=== PATIENT | male | born 1990 | race Caucasian/White ===

== ENCOUNTER 2023-05-27 12:36 | Emergency (ER) | payer OTHER, SELFPAY ==
--- NOTE | 2023-05-27 12:30 | DI.RAD_ITS ---
Exam(s) XR PORTABLE CHEST AP EXAM: XR PORTABLE CHEST AP CLINICAL HISTORY: Trauma TECHNIQUE: 2D digital imaging was performed of the chest. Two images were obtained. AP views were obtained. COMPARISON: No exams were available for comparison FINDINGS: MEDIASTINUM: Normal. HEART: Normal. PULMONARY VASCULATURE: Normal. LUNGS: Clear. PLEURAL SPACE: No pleural effusion or pneumothorax. BONE:Within normal limits for the patient's age. There are no displaced rib fractures. OTHER FINDINGS:Normal. IMPRESSION: No acute pulmonary findings. DATA REPOSITORY: RADIATION DOSE DELIVERED:
[2023-05-27 12:37] VITALS: BP 144/75; PULSE 58; RESP 18; TEMP 36.4; O2SAT 100
[2023-05-27 12:40] VITALS: BP 144/75; PULSE 55; O2SAT 100
[2023-05-27 12:46] VITALS: BP 137/53; PULSE 51
[2023-05-27] MEDS: fentaNYL 100 MCG/2 ML VIAL 50 MCG IVP (12:47)
[2023-05-27 12:51] LABS: Abs Immature Grans 0.02 10^3/uL (0.0-0.06); Absolute Basophil Count 0.02 10^3/uL (0.0-0.2); Absolute Eosinophil Count 0.05 10^3/uL (0.0-0.7); Absolute Lymphocyte Count 1.62 10^3/uL (1.2-3.4); Absolute Monocyte Count 0.51 10^3/uL (0.1-0.8); Absolute Neutrophil Count 5.96 10^3/uL (1.2-6.7); Basophils % 0.2; Eosinophils % 0.6; HCT 43.5 % (40.0-50.0); HGB 14.6 g/dL (13.5-17.5); Immature Grans % 0.2; Lymphocytes % 19.8; MCH 29.7 pg (27.0-33.0); MCHC 33.6 % (32.0-36.0); MCV 88 fL (80-95); MPV 9.8 fL (8.0-11.0); Monocytes % 6.2; Platelet Count 188 10^3/uL (130-400); RBC 4.92 10^6/uL (4.36-5.78); RDW 13.8 % (11.8-14.1); RDW-SD 44.6 fL; WBC 8.18 10^3/uL (4.4-10.8)
--- NOTE | 2023-05-27 12:51 | ED.GENADUL_ITS ---
HPI General Date/Time Provider Initiated Documentation: 05/27/23 12:40 . HPI Narrative: MDM Primary survey intact. Reassuring shock index. Secondary survey patient has signs of minor trauma to his face. Given his loss of consciousness and significant mechanism of injury will complete CT maxillofacial and CT head. Also will obtain a chest x-ray. No pain or proportion to suggest necrotizing soft tissue infection. Bilateral upper and lower extremities nontender. No signs of trauma to the chest or abdomen however will obtain chest x-ray. Will update patient's tetanus status. No afferent pupillary defect to suggest retrobulbar hematoma. Similarly no proptosis so I do not feel that the patient requires a lateral canthotomy. Finally he denies any changes in his vision. Given no direct trauma to the eye I did not complete fluorescein exam nor slit- lamp exam as my suspicion is exceedingly low for globe rupture and corneal abrasion respectively. Lacerations were cleaned in the emergency department. 2 PM Reassuring negative troponin. Negative ethanol. Basic metabolic panel with v manpreet mild hyperglycemia but no anion gap and normal bicarbonate??not consistent with DKA. CBC lacks anemia thrombocytopenia and leukocytosis. Chest x-ray read as clear. CT head with maxillofacial cuts showing no acute intracranial process. No facial fractures. 2:31 PM Patient ambulated in the ED and was able to tolerate p.o. Will provide him a work note for tomorrow. I asked him to ensure that the iqra that he was using is taken out of service. He reported that he will dispose of it. Chronic conditions affecting the care of the patient: N/A History obtained from an outside historian: Paramedics External record review: N/A [Diagnostic interpretations performed by me: Per my independent interpretation chest x-ray shows: No acute cardiopulmonary process Medications: Acetaminophen ibuprofen Social determinants of health affecting disposition: N/A Management discussed with: Dr. Hill radiology given enlarged cisterna magna which is reportedly meeting characteristics for normal variant. Treatment/interventions considered: N/A Response to therapies provided: Improved symptoms in the ED HPI This is a previously healthy 32-year-old male arrived to the emergency department via ambulance following an injury he sustained at work in which a transmission hit the patient in the face. 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 He was found on the ground by his coworkers. He was reportedly unresponsive for approximately 5 minutes. He sustained a laceration just below his left eye. He has not had any visual changes. He does not feel that he has anything in his eye. He was able to stand after his injury. He denies any difficulty breathing. He takes no routine medications. He received his immunizations during childhood. Exam General: Well-appearing in no acute distress speaking in complete sentences. Head: Normocephalic, atraumatic. Eye:[Pupils equal, round reactive to light.] Extraocular eye movements intact. No conjunctival injection. No scleral icterus. No proptosis. Ear, nose, mouth, throat: Just inferior to the patient's left eye there are 2 superficial approximately 1 cm lacerations. On the left side of the patient's nose there is a superficial 1 cm laceration. All 3 of these lacerations are hemostatic. Neck: Trachea midline. No midline cervical spinal tenderness. Cardiovascular: Well-perfused distal extremities. Regular rate and rhythm. Respiratory: Nonlabored respiration. Clear lungs bilaterally. Gastrointestinal: Nondistended abdomen. Soft nontender Musculoskeletal: No edema. Moving all 4 extremities spontaneously. Skin: Normal for age and race, grossly normal temperature and turgor. No acute rash. Neurologic: Alert and appropriate, no apparent acute deficits. Psychiatric: Mood and manner are appropriate. Grooming and personal hygiene are appropriate. Related Data Allergies Allergy/AdvReac Type Severity Reaction Status Date / Time No Known Allergies Allergy Unverified 05/27/23 12:43 General Stated Complaint: Trauma HERMILO: 2 Course Vital Signs Vital signs: Vital Signs Temperature 36.4 C 05/27/23 12:37 Pulse 58 L 05/27/23 12:37 Respiratory Rate 18 05/27/23 12:37 Blood Pressure 144/75 H 05/27/23 12:37 Pulse Oximetry 100 05/27/23 12:37 Temperature 36.4 C 05/27/23 12:37 Pulse 58 L 05/27/23 12:37 Respiratory Rate 18 05/27/23 12:37 Blood Pressure 144/75 H 05/27/23 12:37 Pulse Oximetry 100 05/27/23 12:37 Medical Decision Making Quality:SDOH Health Related Social Needs: No Data to Display PFSH All Active Problems (Updated 05/27/23 @ 14:16 by Ta Pimentel MD) Face lacerations (Acute) Immunization, tetanus-diphtheria (Acute) Social History Smoking/Tobacco Use Status: Never Smoking risk assessment performed?: Yes Alcohol Intake: current Alcohol Intake frequency: holidays/special occasions only Substance use type: does not use Discharge Plan Disposition Patient Disposition: Home Discharge Details Clinical Impression: Immunization, tetanus-diphtheria, Face lacerations Primary Care Provider: Unknown,Unknown ED Provider: Ta Pimentel Discharge Instructions Instructions: Facial Laceration (ED) Additional Instructions: You were seen in the emergency department for your facial lacerations. CAT scan showed no sign of any bleeding in your head. Your blood work shows that your kidneys are working well. Please return to the emergency department if you develop any streaking signs of infection fevers chills or any foul-smelling drainage from your wound. Otherwise please follow-up with your primary care provider as needed later this week. Your tetanus was updated in the emergency department. Stand Alone Forms: Work Release Discharge Data Discharge Date/Time-TO BE ENTERED AT DEPARTURE: 05/27/23 14:43
--- NOTE | 2023-05-27 13:04 | DI.CT_ITS ---
Exam(s) CT HEAD FACIAL WO EXAM: CT HEAD FACIAL WO CLINICAL HISTORY: Loss of consciousness,. TECHNIQUE: Imaging Protocol: Axial computed tomography images with coronal and sagittal reformatted images were created and reviewed COMPARISON: No exams were available for comparison FINDINGS: CT Head: Ventricles and Extra axial spaces: Normal in size and morphology for the patient's age. Hemorrhage: None. Cerebral parenchyma: Normal. Midline shift: None. Brainstem/Cerebellum: Normal. Calvarium: Normal. Visualized Paranasal sinuses/Mastoids: Clear. Soft Tissues: Unremarkable. CT Face: Facial Bones: No definite fracture is noted in facial bones. Sinuses and Mastoids: There is a small mucous retention cyst in the floor of the right maxillary sin us. The remaining visualized paranasal sinuses and mastoid air cells are clear. Globes, extraocular muscles, optic nerves and retrobulbar fat: Normal. Upper aerodigestive tract: Normal. Mandible and bilateral temporomandibular joints: Normal. Soft tissues: Normal. IMPRESSION: 1. No acute intracranial process. 2. No acute facial fracture. RADIATION DOSE DELIVERED: 1,686.77mGy.cm Total DLP DATA REPOSITORY: All CT scans at this facility are submitted to the National Radiology Data Registry (NRDR) Dose Index Registry (DIR) with the [employer] (ACR). RADIATION OPTIMIZATION: All CT scans at this facility use at least one of these dose optimization te chniques: automated exposure control; mA and/or kV adjustment per patient size (includes targeted exa ms where dose is matched to clinical indication); or iterative reconstruction.
[2023-05-27] MEDS: Normal Saline 500 ML IV (13:07)
[2023-05-27 13:11] LABS: Anion Gap 9.3 mmol/L (3-11); BUN 14 mg/dL (7-18); CO2 28.7 mmol/L (21.0-32.0); Calcium 9.1 mg/dL (8.5-10.1); Chloride 103 mmol/L (98-107); Estimated GFR 103.84 (mL/min/1.73m2); Glucose 111 mg/dL (74-106); Potassium 4.5 mmol/L (3.5-5.1); Sodium 141 mmol/L (136-145); Troponin I < 50 ng/L (< or =60)
[2023-05-27 13:12] LABS: ETHANOL BLOOD < 3.0 mg/dL (<10)
[2023-05-27 13:40] VITALS: PULSE 60; RESP 12; O2SAT 100
[2023-05-27 14:10] VITALS: PULSE 52; RESP 17; O2SAT 100
[2023-05-27 14:27] VITALS: BP 133/68; PULSE 48
[2023-05-27] MEDS: Acetaminophen 500 MG TAB 1000 MG PO (14:40)
[2023-05-27] MEDS: Ibuprofen 600 MG TAB PO (14:41)
== END 2023-05-27 14:43 | disposition home or self-care (01) ==
PROVIDERS: Emergency Provider Emergency Medicine
DX: S01.81XA Laceration without foreign body of other part of head, initial encounter (principal); W24.0XXA Contact with lifting devices, not elsewhere classified, initial encounter; Y93.89 Activity, other specified; Y92.89 Other specified places as the place of occurrence of the external cause; Y99.0 Civilian activity done for income or pay; Z23 Encounter for immunization
CPT/HCPCS: 36415; 80048; 90471; 90715; 96361; 96374; 99285; 70450; 70486; 71045; 80320; 84484; 85025; 99284; J3010

== ENCOUNTER 2024-04-06 10:05 | Emergency (ER) | payer BC, SELFPAY ==
[2024-04-06 10:19] VITALS: BP 147/78; PULSE 60; RESP 16; TEMP 36.8; O2SAT 100
--- NOTE | 2024-04-06 10:30 | DI.US_ITS ---
Exam(s) US SCROTUM EXAM: US SCROTUM CLINICAL HISTORY: R test. tenderness, eval for epidid and vasc flow TECHNIQUE: Ultrasound of the testes performed using grayscale, color, and Doppler imaging. COMPARISON: No exams were available for comparison FINDINGS: RIGHT HEMISCROTUM: The right testicle exhibits normal size and echo architecture with no evidence of solid intratesticul ar mass. There are a few small benign-appearing cysts in the right testicle, the largest measuring 4 x 2 mm. Vascular flow was demonstrated within the right testicle, including arterial waveforms. The epididymis appears unremarkable. There are no epididymal head cysts. There is no ipsilateral hydrocele nor varicocele. There is a bowel loop containing right inguinal hernia demonstrated upon Valsalva maneuver. LEFT HEMISCROTUM: The left testicle exhibits normal size and echo architecture with no evidence of intratesticular mass . Vascular flow is demonstrated within the left testicle, including arterial waveforms. The epididymis appears unremarkable. There are no epididymal head cysts. There is no ipsilateral hydrocele or varicocele. IMPRESSION: 1. No evidence of significant testicular mass nor testicular torsion. A few tiny benign cysts are no bettina in the right testicle. 2. Right inguinal hernia noted with Valsalva maneuver. This appears to contain bowel loop. 3. No hydroceles or varicoceles evident. Report called by myself to ER 04/06/2024 at 12:01 noon DATA REPOSITORY:
--- NOTE | 2024-04-06 10:30 | DI.CT_ITS ---
Exam(s) CT ABDOMEN PELVIS W EXAM: CT ABDOMEN PELVIS W CLINICAL HISTORY: right groin pain, hernia now reduced. TECHNIQUE: Imaging Protocol: Axial computed tomography images with coronal and sagittal reformatted images were created and reviewed CONTRAST MATERIAL: Intravenous: Omnipaque-350 100cc Oral: None COMPARISON: No exams were available for comparison FINDINGS: VISUALIZED LUNG BASES: No nodules nor pleural effusions evident. ABDOMEN: There is no ascites. LIVER: There are no focal hepatic lesions evident. No dilated intrahepatic ducts. GALLBLADDER/BILIARY: Septated. No obvious acute gallbladder pathology. CBD is not dilated. PANCREAS: No evidence of pancreatic mass nor dilatation of the pancreatic duct. SPLEEN: Spleen is not enlarged. No obvious intrasplenic lesions. Splenic and portal veins are paten t. ADRENALS: There are no significant adrenal masses. KIDNEYS:No cysts evident. No solid renal masses. No calculi nor hydronephrosis.. ABDOMINAL AORTA: Abdominal aorta is not enlarged. LYMPH NODES:There is no retroperitoneal nor paraaortic adenopathy. ABDOMINAL WALL: Anterior abdominal wall small fat only containing umbilical hernia GI: There is no evidence of bowel obstruction, free air, nor abscess. PELVIS: GI: No evidence of appendicitis.No evidence of sigmoid diverticulitis. LYMPH NODES: There is no intrapelvic nor inguinal adenopathy. REPRODUCTIVE: Age-appropriate URINARY BLADDER: No calculi nor obvious masses evident OSSEOUS: No fractures and no significant osseous lesions. IMPRESSION: 1. No acute findings on the CT scan of the abdomen pelvis. 2. Small fat only containing umbilical hernia. No bowel obstruction. Report called by myself to ER physician 04/06/2024 at 11:48 a.m. RADIATION DOSE DELIVERED: 526.09mGy.cm Total DLP DATA REPOSITORY: All CT scans at this facility are submitted to the National Radiology Data Registry (NRDR) Dose Index Registry (DIR) with the [employer] (ACR). RADIATION OPTIMIZATION: All CT scans at this facility use at least one of these dose optimization te chniques: automated exposure control; mA and/or kV adjustment per patient size (includes targeted exa ms where dose is matched to clinical indication); or iterative reconstruction.
[2024-04-06 10:58] LABS: Lactate 1.2 mmol/L (0.6-1.4)
[2024-04-06] MEDS: Ketorolac 15 MG/ML VIAL IVP (11:00)
[2024-04-06] MEDS: Acetaminophen 500 MG TAB 1000 MG PO (11:00)
[2024-04-06 11:08] LABS: Abs Immature Grans 0.01 10^3/uL (0.0-0.06); Absolute Basophil Count 0.02 10^3/uL (0.0-0.2); Absolute Eosinophil Count 0.03 10^3/uL (0.0-0.7); Absolute Lymphocyte Count 1.68 10^3/uL (1.2-3.4); Absolute Neutrophil Count 3.15 10^3/uL (1.2-6.7); Basophils % 0.4 %; Eosinophils % 0.6 %; HCT 44.4 % (40.0-50.0); Immature Grans % 0.2 %; Lymphocytes % 31.8 %; MCH 29.9 pg (27.0-33.0); MCHC 33.8 % (32.0-36.0); MCV 88 fL (80-95); MPV 10.4 fL (8.0-11.0); Monocytes % 7.6 %; Neutrophils % 59.4 %; Platelet Count 180 10^3/uL (130-400); RBC 5.02 10^6/uL (4.36-5.78); RDW 13.9 % (11.8-14.1); RDW-SD 45.1 fL; WBC 5.29 10^3/uL (4.4-10.8)
[2024-04-06] MEDS: Omnipaque 350 MG/ML 500 ML BTL-Imaging package IJ (11:15)
[2024-04-06] MEDS: Normal Saline - Diluent 50 ML VIAL IJ (11:17)
[2024-04-06 12:00] LABS: Bilirubin Negative (Negative); Blood Negative (Negative); Clarity Clear (Clear); Glucose Negative (Negative); Ketones Negative (Negative); Leukocyte Esterase Negative (Negative); Nitrite Negative (Negative); Specific Gravity 1.015 (1.005-1.025); Urobilinogen 0.2 mg/dL (Up to 0.2)
--- NOTE | 2024-04-06 12:19 | ED.GENADUL_ITS ---
Discharge Plan Disposition Patient Disposition: Home Condition: Good Discharge Details Clinical Impression: Hernia, inguinal, right Primary Care Provider: Unknown,Unknown ED Provider: Justo Britt Home Meds and New Rx's Prescriptions: No Action No Known Home Meds Discharge Instructions Instructions: Groin hernias Additional Instructions: At this time your CAT scan and ultrasound are reassuring. Please take Tylenol and Motrin as needed for pain. Avoid any significant heavy lifting greater than 5 to 10 pounds. We have placed a referral with our surgeons, they will contact you for follow-up. If you notice any worsening of your symptoms, or any new symptoms such as vomiting, diarrhea, fever, chills, shortness of breath, chest pain, numbness, weakness, or fainting , please return immediately to the emergency department for reevaluation. Please follow up with your primary care provider as soon as possible for reassessment and reevaluation. As always, it was a pleasure participating in your medical care today. Referrals: Carl Hill MD [ [facility] STAFF PHYSICIAN] - Shaina Cruz DO [OSTEOPATHIC DOCTOR] - Discharge Data Discharge Date/Time-TO BE ENTERED AT DEPARTURE: 04/06/24 12:28 HPI General Date/Time Provider Initiated Documentation: 04/06/24 10:06 . HPI Narrative: 33-year-old male with a past medical history of a right inguinal hernia presents today for evaluation of right inguinal pain. Patient states that for the last few years he has been having a right inguinal hernia that will pop in and out whenever he does lifting. Normally it does not cause him significant discomfort, however over the last few days he has had mild right lower quadrant abdominal pain and tenderness in the area of the hernia. He denies any fever or chills. He does have some nausea but no vomiting. Last bowel movement was today, and it was soft in nature. He denies any dysuria, hematuria. He did have intercourse yesterday which was unremarkable. He denies any significant acute testicular pain. He denies any blood in his stools. No other complaints at this time. Related Data Home Medications ?Medication ?Instructions ?Recorded ?Confirmed Unknown [No Known Home Meds] 06/05/23 04/06/24 Allergies Allergy/AdvReac Type Severity Reaction Status Date / Time No Known Allergies Allergy Unverified 04/06/24 10:21 General Stated Complaint: Abd Prob HERMILO: 3 Exam Narrative Exam Narrative: 1.Const: Well-nourished, Well-developed, appearing stated age 2.Eyes: PERRL, no conjunctival injection, and symmetrical lids. 3.ENT: Atraumatic external nose and ears. Moist MM. Neck: Symmetric, trachea midline, No thyromegaly. 4.CVS: +S1/S2, Peripheral pulses 2+ and equal in all extremities. Brisk capillary refill in all extremities. 5.RESP: Unlabored respiratory effort. Clear to auscultation bilaterally. No wheezes rales or rhonchi 6.GI: Soft, Nontender/Nondistended, No hepatosplenomegaly. No guarding or rebound. When the patient does lay down there is no evidence of active hernia. When he does sit up and Valsalva small right inguinal hernia does present. He does have a single right sided inguinal lymph node that is palpable. Testicles demonstrate minimal tenderness on palpation of the epididymis bilaterally. Normal cremasteric reflex bilaterally. No urethral discharge. No penile pain. No scrotal hernia. Small umbilical hernia is palpable. 7.MSK: Normocephalic/Atraumatic, Extremities w/o deformity or ttp No cyanosis or clubbing, Normal movement of all extremities 8.Skin: Warm, Dry. No rashes or lesions. 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 Sensation grossly intact, no focal neurologic deficits. 10.Psych: (AAO) x3. Appropriate mood and affect Course Vital Signs Vital signs: Vital Signs Temperature 36.8 C 04/06/24 10:19 Pulse 60 04/06/24 10:19 Respiratory Rate 16 04/06/24 10:19 Blood Pressure 147/78 H 04/06/24 10:19 Pulse Oximetry 100 04/06/24 10:19 Temperature 36.8 C 04/06/24 10:19 Pulse 60 04/06/24 10:19 Respiratory Rate 16 04/06/24 10:19 Blood Pressure 147/78 H 04/06/24 10:19 Pulse Oximetry 100 04/06/24 10:19 Pain Level 7 04/06/24 10:19 Lab/Test Results Lab/Test Results: Laboratory Tests Range/Units 04/06/24 04/06/24 10:50 11:50 WBC (4.4-10.8) 10^3/uL 5.29 RBC (4.36-5.78) 10^6/uL 5.02 Hgb (13.5-17.5) g/dL 15.0 Hct (40.0-50.0) % 44.4 MCV (80-95) fL 88 MCH (27.0-33.0) pg 29.9 MCHC (32.0-36.0) % 33.8 RDW (11.8-14.1) % 13.9 Plt Count (130-400) 10^3/uL 180 MPV (8.0-11.0) fL 10.4 Immature Gran % % 0.2 Neutrophils % % 59.4 Lymphocytes % % 31.8 Monocytes % % 7.6 Eosinophils % % 0.6 Basophils % % 0.4 Nucleated RBC % (0.0-0.3) % 0.0 Absolute Neutrophils (1.2-6.7) 10^3/uL 3.15 Absolute Lymphocytes (1.2-3.4) 10^3/uL 1.68 Absolute Monocytes (0.1-0.8) 10^3/uL 0.40 Absolute Eosinophils (0.0-0.7) 10^3/uL 0.03 Absolute Basophils (0.0-0.2) 10^3/uL 0.02 VBG Lactate (0.6-1.4) mmol/L 1.2 Urine Color (Yellow) Yellow Urine Clarity (Clear) Clear Urine pH (5-8) 7.0 Ur Specific [place] (1.005-1.025) 1.015 Urine Protein (Neg-Trace) mg/dL Negative Urine Ketones (Negative) mg/dL Negative Urine Blood (Negative) Negative Urine Nitrite (Negative) Negative Urine Bilirubin (Negative) Negative Urine Urobilinogen (Up to 0.2) mg/dL 0.2 Ur Leukocyte Esterase (Negative) Negative Urine Glucose (Negative) mg/dL Negative Medical Decision Making 33-year-old male with a past medical history of a right inguinal hernia presents today for evaluation of right inguinal pain. Patient states that for the last few years he has been having a right inguinal hernia that will pop in and out whenever he does lifting. Normally it does not cause him significant discomfort, however over the last few days he has had mild right lower quadrant abdominal pain and tenderness in the area of the hernia. He raisa es any fever or chills. He does have some nausea but no vomiting. Last bowel movement was today, and it was soft in nature. He denies any dysuria, hematuria. He did have intercourse yesterday which was unremarkable. He denies any significant acute testicular pain. He denies any blood in his stools. No other complaints at this time. Physical exam demonstrates an abdomen that is soft, Nontender/Nondistended, No hepatosplenomegaly. No guarding or rebound. When the patient does lay down there is no evidence of active hernia. When he does sit up and Valsalva small right inguinal hernia does present. Palpation of the right inguinal area does demonstrate some mild tenderness. He does have a single right sided inguinal lymph node that is palpable. Testicles demonstrate minimal tenderness on palpation of the epididymis bilaterally. Normal cremasteric reflex bilaterally. No urethral discharge. No penile pain. No scrotal hernia. Small umbilical hernia is palpable. With the mild achiness in the right inguinal area differential includes lymphadenitis causing the pain tenderness, potential strangulated hernia which is since resolved, less likely appendicitis. With his very mild epididymal tenderness we will get ultrasound to rule out epididymitis. Clinically this appears less likely, but I do feel further evaluation is indicated. Will monitor closely and reassess. 4:24 PM Ultrasound has returned, there are a few benign cyst noted in the right testicle but no other abnormalities. No masses to suggest cancer. Right inguinal hernia is present with Valsalva, and this contains a small bowel loop, but no incarceration or strangulation. CT imaging shows no evidence of acute process. Patient otherwise continues to feel well. Repeat exam continues to show no sign s of a strangulated or incarcerated hernia, no evidence of an acute surgical abdomen. Patient feels well. He will be discharged home. Patient will be given referral for outpatient surgical follow-up. Discussed red flags for which to return. Recommend continued stool softeners. I have extensively reviewed the treatment plan and discharge instructions with the patient. I have addressed all patient concerns at this time. The patient was made aware of what symptoms to monitor for that would warrant a return to the emergency department. Discussed the plan with the patient, they demonstrate verbal understanding and agreement with our assessment and plan at this time. The documentation in this chart was dictated using [employer] dictation software. Please excuse any dictation errors. FINDINGS: RIGHT HEMISCROTUM: The right testicle exhibits normal size and echo architecture with no evidence of solid intratesticular mass. There are a few small benign-appearing cysts in the right testicle, the largest measuring 4 x 2 mm. Vascular flow was demonstrated within the right testicle, including arterial waveforms. The epididymis appears unremarkable. There are no epididymal head cysts. There is no ipsilateral hydrocele nor varicocele. There is a bowel loop containing right inguinal hernia demonstrated upon Valsalva maneuver. LEFT HEMISCROTUM: The left testicle exhibits normal size and echo architecture with no evidence of intratesticular mass. Vascular flow is demonstrated within the left testicle, including arterial waveforms. The epididymis appears unremarkable. There are no epididymal head cysts. There is no ipsilateral hydrocele or varicocele. IMPRESSION: 1. No evidence of significant testicular mass nor testicular torsion. A few tiny benign cysts are noted in the right testicle. 2. Right inguinal hernia noted with Valsalva maneuver. This appears to contain bowel loop. 3. No hydroceles or varicoceles evident. FINDINGS: VISUALIZED LUNG BASES: No nodules nor pleural effusions evident. ABDOMEN: There is no ascites. LIVER: There are no focal hepatic lesions evident. No dilated intrahepatic ducts. GALLBLADDER/BILIARY: Septated. No obvious acute gallbladder pathology. CBD is not dilated. PANCREAS: No evidence of pancreatic mass nor dilatation of the pancreatic duct. SPLEEN: Spleen is not enlarged. No obvious intrasplenic lesions. Splenic and portal veins are patent. ADRENALS: There are no significant adrenal masses. KIDNEYS:No cysts evident. No solid renal masses. No calculi nor hydronephrosis.. ABDOMINAL AORTA: Abdominal aorta is not enlarged. LYMPH NODES:There is no retroperitoneal nor paraaortic adenopathy. ABDOMINAL WALL: Anterior abdominal wall small fat only containing umbilical hernia GI: There is no evidence of bowel obstruction, free air, nor abscess. PELVIS: GI: No evidence of appendicitis.No evidence of sigmoid diverticulitis. LYMPH NODES: There is no intrapelvic nor inguinal adenopathy. REPRODUCTIVE: Age-appropriate URINARY BLADDER: No calculi nor obvious masses evident OSSEOUS: No fractures and no significant osseous lesions. IMPRESSION: 1. No acute findings on the CT scan of the abdomen pelvis. 2. Small fat only containing umbilical hernia. No bowel obstruction. Quality:SDOH Health Related Social Needs: No Data to Display [facility] All Active Problems (Updated 04/06/24 @ 12:20 by Justo Britt DO) Hernia, inguinal, right (Acute) Concussion (Acute) Social History Smoking/Tobacco Use Status: Current-Occasional Tobacco Type: cigarettes Smoking risk assessment performed?: Yes Alcohol Intake: current Alcohol Intake frequency: holidays/special occasions only Drug use: Occasionally Substance use type: marijuana Housing: house Do you feel safe at home: Yes Do you feel safe in your relationship?: Yes
[2024-04-06 12:28] VITALS: BP 132/65; PULSE 54; RESP 16; O2SAT 100
[2024-04-07 12:53] LABS: Chlamydia Result Negative (Negative); GC Result Negative (Negative)
== END 2024-04-06 12:28 | disposition home or self-care (01) ==
PROVIDERS: Emergency Provider Student in an Organized Health Care Education/Training Program
DX: K40.90 Unilateral inguinal hernia, without obstruction or gangrene, not specified as recurrent (principal); F17.210 Nicotine dependence, cigarettes, uncomplicated
CPT/HCPCS: 36415; 87491; 87591; 96374; 99285; 74177; 76870; 81003; 83605; 85025; J1885

== ENCOUNTER 2024-05-13 06:29 | Day surgery (SDC) | payer BC, SELFPAY ==
--- NOTE | 2024-05-12 19:59 | W.PM.DSUDISC ---
Date of service: 05/13/24 Discharge Plan Disposition Patient Disposition: Home Condition: Good Discharge Details Reason For Visit: Inguinal hernia repair Attending Provider: Carl Hill Primary Care Provider: Unknown,Unknown Home Meds and New Rx's Prescriptions: New tramadol 50 mg tablet 50 mg PO Q8H PRNQty: 12 0RF Rx Instructions: Take 1 tablet by mouth up to every 8 hours if needed for severe pain Discharge Instructions Instructions: Groin Hernia Repair, Open Surgery Additional Instructions: Rolo, it was great seeing you again today, and I hope you make a quick recovery from the surgery. Everything went very smoothly. The hernia was quite obvious, and easy to reduce back into place. I repaired it with the mesh just as we discussed before hand. Hopefully this will provide a comfortable and durable repair for the years to come. Expect to get some bruising over the area, and perhaps even down into the scrotum. That is extremely common and nothing to worry about. I put in a prescription for some tramadol in the case that you need that. As we discussed before, he should be up and walking around a little bit day by day. When you are taking breaks, try to lay flat, or keep your pelvis elevated to help reduce swelling in the area. Ice packs are also very helpful for this. If you need anything, or have any questions at all, please do not hesitate to call, otherwise I look forward to seeing you in the office at your follow-up visit. 1. Resume all of your regular medications. 2. Alternate over the counter tylenol and ibuprofen every 6 hours for the first two days, then use as needed. Use the prescription for tramadol if needed for more severe pain. 3. Use heating pads and ice packs as needed for pain and swelling. 4. Leave bandage in place for 24 hours, then remove. 5. Shower with warm soapy water. Pat dry. Use a bandaid if needed to protect your clothing. 6. No soaking or tub baths until I see you in the office. 7. No heavy lifting until I see you in the office. 8. Call the office (or go directly to the emergency room after hours) if you notice any of the following: Develop chills (warm to touch), or if you have a thermometer and your temperature is above 101 Difficulty breathing or difficultly swallowing Persistent vomiting Any bleeding ? exceeding one tablespoon 9. Call your physician if the site where your intravenous was started becomes red, swollen, painful, and warm to touch. Stand Alone Forms: Anesthesia Discharge Inst., Anes.Nerve Block Instructions, Ace Mccall (DSU) Referrals: Carl Hill MD [ [facility] STAFF PHYSICIAN] - 05/26/24 7:30 am Activity:: no heavy lifting Remove Dressings/Wound Care:: 24 hours Shower/Bathe:: 24 hours Diet:: As Tolerated Discharge Orders Discharge Orders: Discharge Order (Routine); Ordered 05/12/24 Ordered By: Carl Hill DS: Diagnosis Discharge Diagnosis (1) Inguinal hernia: Status: Acute
--- NOTE | 2024-05-12 20:03 | W.PM.OP ---
Operative Note Operative Note PRE-OP DIAGNOSIS: Inguinal hernia POST-OP DIAGNOSIS: same PROCEDURE: Open inguinal hernia repair with mesh SURGEON: Carl Hill CHAINSTITCH FELLED SEAM OPERATOR: Sendy Givens ANESTHESIA TYPE: Local By Surgeon, General LMA/ETT and Other (Ultrasound-guided right inguinal tap block) Refer to Anesthesia Record PATHOLOGY: none sent COMPLICATIONS: None Patient was transported to: PACU Patient's condition: stable Implants: Bard PerFix light small mesh plug and patch Indications: Doug is a 33-year-old male with symptomatic right-sided inguinal hernia Findings: Indirect right inguinal hernia Procedure Description: I began by confirming the correct site with Rolo in the preop area. Once the operating room is ready, we moved back there, he was assisted onto the OR table and padded and supported appropriately. General endotracheal anesthesia was initiated, and the anesthesia service provided a right-sided ultrasound-guided right inguinal tap block. The surgical site was then prepped and draped in the usual fashion. I began by making an oblique incision over the right inguinal region. I dissected down through the skin to the deep fascia. Next, I incised the fascia along the length of the inguinal canal to the external ring. I then carefully identified the ilioinguinal nerve and sharply divided. Once this was complete, I bluntly dissected the shelving edge of the inguinal ligament down towards the pubic tubercle. Here, I encircled all cord structures with a Joseph drain. Next, I began dissecting the specific cord structures. Great care was taken to spare the vas deferens and the blood supply to the testicle. Next, I isolated the hernia sac from the other inguinal structures. I reduced it back to its normal anatomic position. This was an indirect inguinal hernia. I then used a small PerFix light mesh plug to obliterate the defect at the internal ring. I fixed in place with interrupted Prolene stitches. Next, I buttressed the posterior floor of the inguinal canal with a large mesh patch. I started by fixing it to the pubic tubercle. Next, I used Prolene sutures to affix it to the shelving edge of the inguinal ligament and the conjoined tendon. Laterally I tacked it to the internal oblique fascia and reconstructed an internal ring without any strain on the cord structures. Once this was complete, I irrigated the surgical field. It appeared hemostatic. I then closed the anterior portion of the fascia to reconstruct the front wall of the inguinal canal. I did this with interrupted Vicryl stitches. Once again, I irrigated the surgical field and inspected for hemostasis. Finally, I approximated the superficial fascia and the deep layers of the skin with absorbable suture. Skin was closed with running subcuticular stitches. Bandages were applied, the patient was awakened and transferred to the recovery unit. Date of Procedure: 05/13/24
[2024-05-13] VITALS (28 sets, daily range): BP systolic 109–173; BP diastolic 66–158; PULSE 42–90; RESP 11–25; TEMP 36.4–36.8; O2SAT 97–100; BMI 25.4
[2024-05-13] MEDS: Celecoxib 200 MG CAP PO (06:55)
[2024-05-13] MEDS: Acetaminophen 500 MG TAB 1000 MG PO (06:55)
[2024-05-13] MEDS: Gabapentin 300 MG CAP 600 MG PO (06:55)
--- NOTE | 2024-05-13 07:04 | ANES.PREOP_ITS ---
General Info Date of Service Date Performed: 05/13/24 Height: 6 ft 4 in Weight: 95 kg Body Mass Index (BMI): 25.4 Surgical Procedure: Operation Date: 05/13/24 07:40 Proposed Procedure Side Surgeon p Herniorrhaphy Inguinal w/Mesh Right Carl Hill MD Meds Allergies and Home Medications Allergies Allergy/AdvReac Type Severity Reaction Status Date / Time No Known Allergies Allergy Verified 05/13/24 06:41 Home Medication ?Medication ?Instructions ?Recorded Unknown [No Known Home Meds] 06/05/23 Current Visit Medications: Current Medications Generic Name Dose Route Start Last Admin Trade Name Freq PRN Reason Stop Dose Admin Acetaminophen 1,000 mg 05/13/24 06:00 05/13/24 06:55 Acetaminophen 500 Mg Tab PO 05/13/24 23:59 1,000 mg PREOP FELIPE Administration Celecoxib 200 mg 05/13/24 06:00 05/13/24 06:55 Celecoxib 200 Mg Cap PO 05/13/24 23:59 200 mg PREOP FELIPE Administration Gabapentin 600 mg 05/13/24 06:00 05/13/24 06:55 Gabapentin 300 Mg Cap PO 05/13/24 23:59 600 mg PREOP FELIPE Administration Hydromorphone HCl 0.2 mg 05/12/24 20:04 Hydromorphone 2 Mg/Ml Syr IVP 06/11/24 20:03 Q1H PRN PRN Ringer's Solution 1,000 mls @ 80 mls/hr 05/13/24 06:00 IV 05/13/24 23:59 INFUSION FLEIPE Cefazolin Sodium/Dextrose 2 gm in 50 mls @ 100 mls/hr 05/13/24 06:00 Ancef Duplex IVPB 05/13/24 23:59 PREOP FELIPE IV Miscellaneous Supplies 1 each 05/13/24 06:00 Iv Access IV 05/13/24 23:59 DIRECTED FELIPE Sodium Chloride 0 ml 05/13/24 06:00 Normal Saline Flush 10 Ml Syr IV 05/13/24 23:59 PRN PRN Sodium Chloride 0 ml 05/13/24 06:00 Normal Saline 10 Ml Vial IJ 05/13/24 23:59 DIRECTED PRN Sterile Water 0 ml 05/13/24 06:00 Water,Injection,Sterile 10 Ml Vial IJ 05/13/24 23:59 DIRECTED PRN Tramadol HCl 50 mg 05/12/24 20:04 Tramadol 50 Mg Tab PO 06/11/24 20:03 Q6H PRN PRN Pain PFSH Active Problems Active Problems: Problem Status Onset Code Inguinal hernia Acute K40.90 Concussion Acute S06.0XAA Surgical History Surgical History Hx of wisdom tooth extraction Tobacco Smoking/Tobacco Use Status: Current-Occasional Tobacco Type: cigarettes Smoking cigarettes per day: 10 Alcohol Alcohol Intake: current Alcohol intake frequency: holidays/special occasions only Alcohol type: beer Substance Use Substance use: Occasionally Substance use type: marijuana Details: marijuana: t-5, half Vital Signs and Lab Results Vital Signs Most Recent Vital Signs in EMR: Most Recent Vital Signs Temp Pulse Resp BP Pulse Ox 36.8 C 57 L 12 117/76 100 05/13/24 06:46 05/13/24 06:46 05/13/24 06:46 05/13/24 06:46 05/13/24 06:46 Lab Results Blood Type / Crossmatch: 2 No Data to Display Complete Blood Count: No Data to Display Complete Metabolic Panel: No Data to Display Liver Function Panel: No Data to Display Coagulation Panel: No Data to Display Cardiac Panel: No Data to Display Arterial Blood Gas: No Data to Display Venous Blood Gas: No Data to Display Pancreas Panel: No Data to Display Thyroid Panel: No Data to Display Infectious Disease: No Data to Display Blood Cultures: No Data to Display Toxicology Panel: No Data to Display Anesthesia Assessment and Plan Anesthesia History Personal History: No History of Anesthesia Complications Family History: No Family History of Anesthesia Complications and Other Exercise Tolerance Exercise Tolerance: Metabolic Equivalents>4 Pertinent Negatives Pertinent Negatives: No Symptoms of GERD Cardiac & Pulmonary Exam Cardiac Exam: Normal S1/S2 Heart Sounds Pulmonary Exam: Clear Bilateral Breath Sounds Implantable Cardiac Device Does patient have a Pacemaker or an ICD?: No Airway Exam Known Difficult Airway: No Mallampati Class: 1 Mouth Opening: Normal (> 3cm) Thyromental Distance: Greater than 3 cm Neck Range of Motion: Full ROM Neck Circumference: Normal Teeth Condition: Normal Dentition ASA Classification ASA Score: ASA 2 Emergency Case?: No NPO Status NPO Status: NPO Clears >2 hours, Solids >8 hours Anesthesia Plan Resuscitation Status: Full Code Anesthesia Technique: General Anesthesia Airway Planned: LMA Pain Management: Surgeon and patient request nerve block Monitors Used: Standard Monitors
[2024-05-13] MEDS: Lactated Ringers 1,000 ML 80 ML IV (07:10)
[2024-05-13] MEDS: ceFAZolin 2 GM/50 ML BAG IVPB (07:28)
--- NOTE | 2024-05-13 07:57 | ANES.NERVE_ITS ---
Nerve Block Single Injection Procedure Date and Time Date Performed: 05/13/24 Procedure Start: 07:40 Location Where Procedure Performed Procedure Location: Operating Room Procedure Stop: 07:46 Reason Performed: Postoperative Analgesia Requesting Provider: Carl Hill Timeout Performed Timeout Performed: Yes Monitoring Used ECG, Blood Pressure, SpO2 and See EMR for corresponding vital signs Sterility Sterility: Hand Hygiene, Surgical Cap, Surgical Mask, Sterile Gloves and Chlorh exidine Sedation Given During Procedure Sedation Given (Indicate Dose Given): No Sedation given Patient Mental Status Patient Mental Status: Performed under general anesthesia Nerve Block 1st Nerve Block: Laterality: Right Block Type: TAP Unilateral Ultrasound Image Saved?: Yes Needle / Catheter Used: 100mm SonoPlex II Local Anesthetic Bolus (Indicate Dose Given): Lidocaine used for local infiltration of skin, Injected in 3-5ml increments after negative blood aspiration, Bupivacaine 0.25% Dose:: 10ml and Exparel Dose:: 10ml Additives (Indicate Dose Given): None Ultrasound: Sterile probe cover and gel used Nerve Stimulator: Not Used Paresthesia: None Procedure Tolerated: No Complications and Patient tolerated well Procedure Outcome: Successful Performed By: Luis Comer
[2024-05-13] MEDS: Bupivacaine 0.5% Pres-Free W/EPI 30 ML VIAL (08:30)
[2024-05-13] MEDS: fentaNYL 100 MCG/2 ML VIAL IVP ×2 (09:06→09:16)
[2024-05-13] MEDS: HYDROmorphone 1 MG/ML SYR IVP ×2 (09:23→09:35)
[2024-05-13] MEDS: traMADol 50 MG TAB PO (10:38)
--- NOTE | 2024-05-13 11:35 | W.ANESPOSTOP ---
Postoperative Evaluation Date, Time and Location Date Performed: 05/13/24 Time Performed: 11:35 Patient Location: Day Surgery Unit Vital Signs Most Recent Imported Vital Signs: Most Recent Vital Signs Temp Pulse Resp BP Pulse Ox 36.7 C 56 L 12 116/66 98 05/13/24 10:21 05/13/24 10:21 05/13/24 10:21 05/13/24 10:21 05/13/24 10:21 Pain Score Most Recent Pain Score: Most Recent Pain Score Pain Level 2 05/13/24 1135 Assessment Mental Status: Awake (Alert & Oriented to Patient Baseline) Airway and Respiratory Function: Patent airway with normal (patient baseline) respiratory exam Cardiovascular Function: Hemodynamically Stable Hydration Status: Adequately Hydrated Nausea & Vomiting: No Nausea or Vomiting Pain: Pain is tolerable per patient Peripheral Nerve Block: Regional nerve block not resolved at time of post operative discharge Postoperative Comments:: Pt. bladder scanned for 31ml. Advised him to seek care if >8 hours or he has abdominal pain and has not passed urine. He and understood plan.
== END 2024-05-13 11:41 | disposition home or self-care (01) ==
LOC: SUR 06:31
PROVIDERS: Visit Provider Surgery
PROC: (CPT 49505; principal; 2024-05-13 07:30)
DX: K40.90 Unilateral inguinal hernia, without obstruction or gangrene, not specified as recurrent (principal)
CPT/HCPCS: 49505; 64486; C1781; J0665; J0666; J0690; J1100; J1171; J2250; J2405; J2704; J3010

== ENCOUNTER 2024-07-16 08:57 | Emergency (ER) | payer OTHER, SELFPAY ==
[2024-07-16 09:01] VITALS: BP 132/88; PULSE 54; RESP 15; O2SAT 100
--- NOTE | 2024-07-16 09:16 | W.ED.GENAD ---
Discharge Plan Disposition Patient Disposition: Home Condition: Stable Discharge Details Clinical Impression: Fracture, finger, multiple sites, Laceration of finger of right hand Primary Care Provider: Unknown,Unknown ED Provider: Justo Espino Home Meds and New Rx's Prescriptions: New cephalexin 500 mg capsule 500 mg PO QID 7 Days Qty: 28 0RF Discharge Instructions Instructions: Cephalexin, Finger Fracture ED, Laceration Repair With Stitches ED, Wound Care ED Additional Instructions: You were seen in the emergency department for the crush injury to the 2 fingers of your right hand, you had 2 small lacerations that were repaired by 4 and 3 sutures each. These will need to be removed in 7 to 10 days, please apply bacitracin or Neosporin to the wounds with clean bandage for the first 48 hours then keep the areas clean and dry. You also have a nondisplaced small fracture to the very end of your index finger and a comminuted or multiple piece fracture of the distal end of your middle finger. You need to remain in your finger splints, these injuries should get significantly better in 4 to 6 weeks, please rest, ice, compress and elevate the areas frequently, take the prescribed cephalexin to prevent infection as you have 2 open fractures. Please return for any signs of infection like redness streaking up the hand or arm, fever, increasing redness, drainage of pus from your wounds. Referrals: [facility] [Provider Group] Discharge Data Discharge Date/Time-TO BE ENTERED AT DEPARTURE: 07/16/24 11:55 HPI General Date/Time Provider Initiated Documentation: 07/16/24 09:16. HPI Narrative: 34 year-old male presents to ED today by POV/ambulating with a chief complaint of R index and middle finger lacerations while getting his hand caught in an automotive lift with onset just prior to arrival. Quality described as very painful to touch, no radiation to spurting of bright red bleed, complete numbness, fingernail avulsions, severe bruising/swelling/deformity. Severity is described as moderate. Palliating factors include nothing attempted yet. Provoking factors include movement. Events leading up to the incident/Associated Symptoms: Patient unsure of last Tdap. Patient not anticoagulated. Related Data Home Medications ?Medication ?Instructions ?Recorded ?Confirmed cephalexin 500 mg capsule 500 mg PO QID 7 days #28 caps 07/16/24 Previous Rx's ?Medication ?Instructions ?Recorded cephalexin 500 mg capsule 500 mg PO QID 7 days #28 [facility] 07/16/24 Allergies Allergy/AdvReac Type Severity Reaction Status Date / Time No Known Allergies Allergy Verified 07/16/24 09:05 General Stated Complaint: Laceration HERMILO: 3 Review of Systems All systems reviewed & are unremarkable except as noted in HPI and below Exam Narrative Exam Narrative: GENERAL APPEARANCE: Well-nourished, non-toxic, awake and alert, atraumatic, no acute distress. SKIN: Warm, pink, dry, 2 lacerations across the palmar surface of the 2nd and 3rd finger of right hand, irregular but mostly linear, 2 cm each, no active bleeding, no tendon involvement, decreased range of motion but intact, no nail avulsion or severe deformity, no crepitus, right radial pulse 2+ HEAD: Normocephalic, atraumatic, normal hair distribution for gender/age. EYES: Normal conjunctiva, no exudates on lids/lashes. ENT: Nares patent, no circumoral cyanosis, no facial swelling NECK: Supple, trachea midline, painless cervical ROM. LUNGS/CHEST: Non-labored respirations, normal A/P diameter, symmetrical expansion, no chest wall deformity HEART (CV/PV): No peripheral edema, no JVD. ABDOMEN: Soft, non-distended, no guarding. MSK: Normal ROM, no swelling/deformity to bilateral UEs or LEs, moving all extremities without weakness, no cyanosis, spine midline without tenderness, normal curvature. NEURO: Mental Status AAOx4 - alert to person, place, time, events No facial droop, no forehead involvement. Motor: No focal weakness - strength 5/5 in bilateral UEs and LEs, proximal and distal, symmetric. Sensory: sensation intact to light touch globally. Gait normal: patient ambulated without ataxia into ED room. PSYCH: euthymic, cooperative, pleasant, appropriate speech Course Vital Signs Vital signs: Vital Signs Pulse 54 L 07/16/24 09:01 Respiratory Rate 15 07/16/24 09:01 Blood Pressure 132/88 07/16/24 09:01 Pulse Oximetry 100 07/16/24 09:01 Pulse 54 L 07/16/24 09:01 Respiratory Rate 15 07/16/24 09:01 Blood Pressure 132/88 07/16/24 09:01 Blood Pressure Position Sitting 07/16/24 09:01 Pulse Oximetry 100 07/16/24 09:01 Oxygen Delivery Method Room Air 07/16/24 09:01 Oxygen Flow Rate 0 07/16/24 09:01 Pain Level 10 07/16/24 09:06 Procedure Laceration Laceration 1: Date of Procedure: 07/16/24 Provider that performed the procedure: Justo Espino Standard Time Out Performed: No Patient Consented: Verbally Site: hand (R 2nd finger at distal finger pad surface) Side (If applicable): right Description: linear, irregular and clean Depth: simple, single layer Local anesthetic: Lidocaine 1% (ring block and local) Amount of anesthesia used (mL): 5 Pre-repair:: wound explored, irrigated extensively and deep structures intact Suture size: 5-0 Number of sutures:: 4 Complications: None Laceration 2: Date of Procedure: 07/16/24 Provider that performed the procedure: Justo Espnio Standard Time Out Performed: No Patient Consented: Verbally Site: hand (R 3rd finger at distal finger pad surface) Side (If applicable): right Description: linear, irregular and clean Depth: simple, single layer Local anesthetic: Lidocaine 1% (ring block and local) Amount of anesthesia used (mL): 5 Pre-repair:: wound explored, irrigated extensively and deep structures intact Suture size: 5-0 Number of sutures:: 3 Technique: simple, interrupted Complications: None Medical Decision Making This dictation utilizes [id number] dictation software and may contain unedited grammatical errors. 34 year-old male presents to ED today by POV/ambulating with a chief complaint of R index and middle finger lacerations while getting his hand caught in an automotive lift with onset just prior to arrival. Patient is R-hand dominant. Quality described as very painful to touch, no radiation to spurting of bright red bleed, complete numbness, fingernail avulsions, severe bruising/swelling/deformity. Severity is described as moderate. Palliating factors include nothing attempted yet. Provoking factors include movement. Events leading up to the incident/Associated Symptoms: Patient unsure of last Tdap. Patients' medical history: negative, otherwise healthy. Family and social history: works at [employer]. Pertinent exam findings / vital signs include 2 lacerations across the palmar surface of the 2nd and 3rd finger of right hand, irregular but mostly linear, 2 cm each, no active bleeding, no tendon involvement, decreased range of motion but intact, no nail avulsion or severe deformity, no crepitus, right radial pulse 2+. Differential / pathologies of concern include fracture, laceration, not tendon ruptures. Diagnostic studies of: -XR R fingers - shows both fingers fractured, nondisplaced, index finger comminuted. Interventions of: -Suture repair after local anesthetic- index finger 4 sutures 5-0 ethilon, middle finger 3 sutures of 5-0 ethilon, finger splints. ED Course/Assessment/Plan: 34-year-old male caught his right hand caught in an automotive lift at work, suffered a crush injury to the right 2nd and 3rd fingers causing lacerations, there are fractures of both fingers, he was started on cephalexin for open fracture and infection prophylaxis, his wounds were repaired by suture repair he was given finger splints, recommend therapeutic dosing of Tylenol and ibuprofen, strict return criteria for signs of infection discussed, Tdap UTD within 5 years, recommend routine return for suture removal in 7-10 days. Findings not consistent with tendon rupture, felon, neurovascular compromise. Disposition of Laceration of finger of right hand and fracture, finger, multiple sites. Patient verbalized understanding of the plan and return to ED criteria and engaged in shared decision making. Medical Records Medical records reviewed: Yes I reviewed the patient's medical records. Imaging Data Radiologic Study: Attestation: I personally reviewed and interpreted this imaging study as follows: Imaging: X-Ray Radiologist's impression: EXAM: XR FINGER RT MIDDLE CLINICAL HISTORY: R 2nd/3rd finger crush injuries. TECHNIQUE: 2D digital imaging was performed. Three views. COMPARISON: CR XR FINGER RT INDEX from 07/16/2024 FINDINGS: BONES: There is a comminuted but nondisplaced fracture of the mid to distal portion of distal phalanx of the middle finger.. No bony destructive lesion is seen. JOINTS: No dislocation present. SOFT TISSUE: Soft tissue swelling. IMPRESSION: Comminuted nondisplaced fracture of the distal phalanx. Radiologic Study #2: Attestation: I personally reviewed and interpreted this imaging study as follows: Imaging: X-Ray Radiologist's impression: EXAM: XR FINGER RT INDEX CLINICAL HISTORY: R 2nd/3rd finger crush injuries. TECHNIQUE: 2D digital imaging was performed. Three views. COMPARISON: No exams were available for comparison FINDINGS: BONES: Nondisplaced fracture at the tip of the tuft of the distal phalanx. No bony destructive lesion is seen. JOINTS: No dislocation present. SOFT TISSUE: Soft tissue swelling. IMPRESSION: Nondisplaced tuft fracture. Quality:SDOH Health Related Social Needs: No Data to Display PFSH All Active Problems (Updated 07/16/24 @ 11:40 by LAKIA Arriola) Laceration of finger of right hand (Acute) Fracture, finger, multiple sites (Acute) Inguinal hernia (Acute) Concussion (Acute) Surgical History (Updated 05/21/24 @ 08:10 by Ana Valente RN) History of right inguinal hernia repair Hx of wisdom tooth extraction (~05/13/24) Social History Smoking/Tobacco Use Status: Current-Occasional Tobacco Type: cigarettes Smoking risk assessment performed?: Yes Alcohol Intake: current Alcohol Intake frequency: holidays/special occasions only Alcohol type: beer Drug use: Occasionally Substance use type: marijuana Details: marijuana: t-5, half Housing: house Do you feel safe at home: Yes Do you feel safe in your relationship?: Yes Additional Social history: [employer]
[2024-07-16] MEDS: Lidocaine/Epinephri/Tetracaine Topical Gel 3 ML TP (09:24)
[2024-07-16] MEDS: Lidocaine 1% Multi-Dose 50 ML VIAL (09:24)
--- NOTE | 2024-07-16 10:30 | DI.RAD_ITS ---
Exam(s) XR FINGER RT MIDDLE EXAM: XR FINGER RT MIDDLE CLINICAL HISTORY: R 2nd/3rd finger crush injuries. TECHNIQUE: 2D digital imaging was performed. Three views. COMPARISON: CR XR FINGER RT INDEX from 07/16/2024 FINDINGS: BONES: There is a comminuted but nondisplaced fracture of the mid to distal portion of distal phalanx of the middle finger.. No bony destructive lesion is seen. JOINTS: No dislocation present. SOFT TISSUE: Soft tissue swelling. IMPRESSION: Comminuted nondisplaced fracture of the distal phalanx. DATA REPOSITORY: RADIATION DOSE DELIVERED:
--- NOTE | 2024-07-16 10:30 | DI.RAD_ITS ---
Exam(s) XR FINGER RT INDEX EXAM: XR FINGER RT INDEX CLINICAL HISTORY: R 2nd/3rd finger crush injuries. TECHNIQUE: 2D digital imaging was performed. Three views. COMPARISON: No exams were available for comparison FINDINGS: BONES: Nondisplaced fracture at the tip of the tuft of the distal phalanx. No bony destructive lesio n is seen. JOINTS: No dislocation present. SOFT TISSUE: Soft tissue swelling. IMPRESSION: Nondisplaced tuft fracture. DATA REPOSITORY: RADIATION DOSE DELIVERED:
[2024-07-16] MEDS: Cephalexin 500 MG CAP PO (11:01)
== END 2024-07-16 11:55 | disposition home or self-care (01) ==
PROVIDERS: Emergency Provider Physician Assistant
DX: S62.660B Nondisplaced fracture of distal phalanx of right index finger, initial encounter for open fracture (principal); S62.662B Nondisplaced fracture of distal phalanx of right middle finger, initial encounter for open fracture; F17.210 Nicotine dependence, cigarettes, uncomplicated; W24.0XXA Contact with lifting devices, not elsewhere classified, initial encounter; Y93.89 Activity, other specified; Y92.69 Other specified industrial and construction area as the place of occurrence of the external cause; Y99.0 Civilian activity done for income or pay
CPT/HCPCS: 12002; 99283; 73140; J2003